=== PATIENT | female | born 1985 | race Caucasian/White ===

== ENCOUNTER → 2019-08-20 | Outpatient (CLI) | payer BC ==
--- NOTE | 2019-08-20 11:27 | Diagnostic Imaging Report ---
INDICATION: Pain to tailbone for one week. Fall. FINDINGS: Three views. There is a minimally displaced transverse fracture along the sacrococcygeal level. This shows approximately 3 mm of anterior subluxation. The sacral foramen appear intact. SI joints are symmetrical with mild degenerative change. IMPRESSION: Minimally displaced transverse fracture at the sacrococcygeal region. Dictated by: Dictated on workstation # [id number]
== END ==
LOC: RAD FS 10:58
PROVIDERS: ATTEND Family Medicine
DX: M53.3 Sacrococcygeal disorders, not elsewhere classified (principal); W19.XXXA Unspecified fall, initial encounter
CPT/HCPCS: 72220